=== PATIENT | male | born 1995 ===

== ENCOUNTER 2016-08-12 12:10 | Emergency (ER) | payer MEDICAID ==
[2016-08-12 12:16] VITALS: BP 129/69; PULSE 75; RESP 18; TEMP 98.3; O2SAT 97
--- NOTE | 2016-08-12 12:38 | ED PDOC ---
Upper Extremity Pain/Injury Time Seen by Provider: 08/12/16 12:25 Chief Complaint (Nursing): Upper Extremity Problem/Injury Chief Complaint (Provider): left wrist pain History Per: Patient History/Exam Limitations: no limitations Onset/Duration Of Symptoms: Days (x 2) Current Symptoms Are (Timing): Still Present Additional Complaint(s): Chidi Smith is a 21 year old male, with a previous medical history of cardia arrhythmia, who presents to the ED with complaints of left wrist pain after he injured himself playing basketball 2 day prior. Patient reports he was dribbling the ball and accidentally hyper extended his wrist in the process. Patient reports pain during movement of the wrist but denies taking any medication for pain. PMD: none provided Past Medical History Reviewed: Historical Data, Nursing Documentation, Vital Signs Vital Signs: Last Vital Signs Temp 98.3 F 08/12/16 12:15 Pulse 75 08/12/16 12:15 Resp 18 08/12/16 12:15 BP 129/69 08/12/16 12:15 Pulse Ox 97 08/12/16 12:15 - Medical History PMH: Comment Only: Cardia Arrhythmia (ventral septal defect) - Surgical History Other surgeries: cardiac surgery - Family History Family History: States: Unknown Family Hx - Immunization History Hx Tetanus Toxoid Vaccination: No Hx Influenza Vaccination: No Hx Pneumococcal Vaccination: No - Home Medications Home Medications: Ambulatory Orders Medication Instructions Recorded Ibuprofen [Motrin] 600 mg PO Q8 PRN #12 tab 08/12/16 - Allergies Allergies/Adverse Reactions: Allergies Allergy/AdvReac Type Severity Reaction Status Date / Time No Known Allergies Allergy Verified 01/24/15 20:08 Review of Systems ROS Statement: Except As Marked, All Systems Reviewed And Found Negative Musculoskeletal: Positive for: Hand Pain (left wrist ) Physical Exam - Reviewed Nursing Documentation Reviewed: Yes Vital Signs Reviewed: Yes - Physical Exam Appears: Positive for: Well, Non-toxic, No Acute Distress Pulses-Radial (L): 2+ Extremity: Positive for: Normal ROM, Capillary Refill (< 2 seconds ), Other ( old scar on extensir surface of left wrist. no snuff box tenderness ). Negative for: Tenderness (no bony tenderness noted. patient reports pain to the volar aspect with movement.), Deformity, Swelling Neurologic/Psych: Positive for: Alert, Oriented - ECG O2 Sat by Pulse Oximetry: 97 (RA) Pulse Ox Interpretation: Normal - Progress ED Course And Treament: Xry of wrist: no acte fx Placed in volar splint Medical Decision Making Medical Decision Making: Initial Impression: left wrist pain Initial Plan: * x-ray left wrist * reevaluation Patient is refusing anything for pain in the ED at this time. Scribe Attestation: Documented by Hanane Drummond, acting as a scribe for Libertad Bella PA-C. Provider Scribe Attestation: All medical record entries made by the Scribe were at my direction and personally dictated by me. I have reviewed the chart and agree that the record accurately reflects my personal performance of the history, physical exam, medical decision making, and the department course for this patient. I have also personally directed, reviewed, and agree with the discharge instructions and disposition. Disposition - Clinical Impression Clinical Impression: Wrist sprain - Patient ED Disposition Is Patient to be Admitted: No - Disposition Referrals: [facility] [Outside] Disposition: Routine/Home Disposition Time: 13:09 Condition: FAIR Prescriptions: Ibuprofen [Motrin] 600 mg PO Q8 PRN #12 tab PRN Reason: Pain, Moderate (4-7) Instructions: Wrist Sprain (ED) Forms: [facility] ED School/Work Excuse
--- NOTE | 2016-08-12 13:18 | RAD ---
PROCEDURE: Left Wrist Radiographs. HISTORY: wrist injury COMPARISON: None. FINDINGS: BONES: Normal. No fracture. JOINTS: Normal. No dislocation. Negative ulnar variance SOFT TISSUES: Normal. OTHER FINDINGS: No radiopaque foreign bodies IMPRESSION: No evidence of acute displaced fracture nor dislocation
== END 2016-08-12 13:47 | disposition home or self-care (01) ==
LOC: H.ER 12:10
DX: S63.502A Unspecified sprain of left wrist, initial encounter (principal); X50.9XXA Other and unspecified overexertion or strenuous movements or postures, initial encounter; Y92.310 Basketball court as the place of occurrence of the external cause

== ENCOUNTER 2016-08-20 15:37 | Emergency (ER) | payer MEDICAID ==
[2016-08-20 15:57] VITALS: BP 126/66; PULSE 82; RESP 22; TEMP 98.1; O2SAT 98
[2016-08-20] MEDS ORDERED: Sodium Chloride 0.9% 1,000 ML IV STA (16:30)
--- NOTE | 2016-08-20 16:48 | ED PDOC ---
HPI: General Adult Time Seen by Provider: 08/20/16 16:14 Chief Complaint (Nursing): Abdominal Pain Chief Complaint (Provider): abdominal pain History Per: Patient History/Exam Limitations: no limitations Additional Complaint(s): 21yo male comes to the ED complaining of mid abdominal pain radiating to the chest for 2 days associated with several episodes of vomit. No diarrhea, fever or shortness of breath. 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 He has not followed up in >2 years. Is not taking any current mediations. Never had this pain before. Denies syncope, dizziness, bloody stools. 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 - Family History Family History: States: Unknown Family Hx - Living Arrangements Living Arrangements: With Family - Social History Current smoker - smoking cessation education provided: No Alcohol: Social (infrequent) - Immunization History Hx Tetanus Toxoid Vaccination: No Hx Influenza Vaccination: No Hx Pneumococcal Vaccination: No - Home Medications Home Medications: Ambulatory Orders Medication Instructions Recorded Ibuprofen [Motrin] 600 mg PO Q8 PRN #12 tab 08/12/16 Dicyclomine [Dicyclomine HCl] 10 mg PO TID PRN #12 08/20/16 - Allergies Allergies/Adverse Reactions: Allergies Allergy/AdvReac Type Severity Reaction Status Date / Time No Known Allergies Allergy Verified 01/24/15 20:08 Review of Systems ROS Statement: Except As Marked, All Systems Reviewed And Found Negative Cardiovascular: Positive for: Chest Pain Gastrointestinal: Positive for: Abdominal Pain. Negative for: Other (bloody stools) Neurological: Negative for: Dizziness Physical Exam - Reviewed Nursing Documentation Reviewed: Yes Vital Signs Reviewed: Yes - Physical Exam Appears: Positive for: Well, Non-toxic, No Acute Distress Head Exam: Positive for: ATRAUMATIC, NORMAL INSPECTION, NORMOCEPHALIC Skin: Positive for: Warm, Dry Eye Exam: Positive for: EOMI, PERRL Cardiovascular/Chest: Positive for: Regular Rate, Rhythm. Negative for: Murmur Respiratory: Positive for: Normal Breath Sounds. Negative for: Rales, Rhonchi, Wheezing Gastrointestinal/Abdominal: Positive for: Soft, Tenderness (mild periumbilical and mid abdominal tenderness). Negative for: Guarding, Rebound Extremity: Positive for: Normal ROM - Laboratory Results Result Diagrams: 08/20/16 16:30 08/20/16 16:30 - ECG O2 Sat by Pulse Oximetry: 98 (RA) Pulse Ox Interpretation: Normal Medical Decision Making Medical Decision Makin workup for undifferentiated abdominal pain and chest pain. Bloodwork, EKG, CT chest/abd/pel w/ contrast, Pepcid, zofran, IV fluids ordered. workup unremarkable incld blood and CT imaging of chest/abd/pelvis. DC home with followup PMD. No signs acute surgical, infections, cardiac or neurologic emergency at this time to indicate hospital admission or further emergent testing. Disposition - Clinical Impression Clinical Impression: Abdominal pain - Patient ED Disposition Is Patient to be Admitted: No Counseled Patient/Family Regarding: Studies Performed, Diagnosis, Need For Followup - Disposition Referrals: Boby XIONG,MD [facility] [Medical Doctor] - Disposition: Routine/Home Disposition Time: 20:30 Condition: STABLE Additional Instructions: See GI doctor for further testing and treatment. Use medications as directed only. Avoid alcohol. Prescriptions: Dicyclomine [Dicyclomine HCl] 10 mg PO TID PRN #12 PRN Reason: Gi Distress Instructions: Acute Abdominal Pain (ED) Forms: [facility] ED School/Work Excuse Additional Comments - Additional Comments Additional Comments: Scribe Attestation: Documented by Junaid Montaño acting as a scribe for Gino Adames DO. Provider Scribe Attestation: All medical record entries made by the Scribe were at my direction and personally dictated by me. I have reviewed the chart and agree that the record accurately reflects my personal performance of the history, physical exam, medical decision making, and the department course for this patient. I have also personally directed, reviewed, and agree with the discharge instructions and disposition.
[2016-08-20 17:06] LABS: BASO % 0.4 % (0.0-2.0); EOS # 0.2 K/uL (0.0-0.7); EOS % 2.9 % (0.0-4.0); HEMATOCRIT 45.9 % (35.0-51.0); LYMPH # 2.3 K/uL (1.0-4.3); LYMPH % 32.9 % (20.0-40.0); MEAN CELL VOLUME 87.3 fl (80.0-94.0); MEAN CORPUSCULAR HEMOGLOBIN 29.3 pg (27.0-31.0); MEAN CORPUSCULAR HGB CONC 33.6 g/dL (33.0-37.0); MONO # 0.6 K/uL (0.0-0.8); MONO % 8.4 % (0.0-10.0); NEUT # 3.8 K/uL (1.8-7.0); NEUT % 55.4 % (50.0-75.0); NRBC % 0.1 % (0.0-0.0); RED CELL DISTRIBUTION WIDTH 13.5 % (11.5-14.5); WHITE BLOOD COUNT 6.9 K/uL (4.8-10.8)
[2016-08-20 17:28] LABS: ALB/GLOB RATIO 1.6 (1.0-2.1); ALKALINE PHOSPHATASE 82 U/L (38-126); ALT/SGPT 30 U/L (21-72); AST/SGOT 26 U/L (17-59); BILIRUBIN,TOTAL 0.8 mg/dl (0.2-1.3); BLOOD UREA NITROGEN 10 mg/dl (9-20); CALCIUM 9.7 mg/dL (8.4-10.2); CARBON DIOXIDE 27 mmol/L (22-30); CHLORIDE 103 mmol/L (98-107); GFR AFRICAN-AMERICAN > 60; GLUCOSE,RANDOM 100 mg/dL (75-110); LIPASE 70 U/L (23-300); POTASSIUM 4.1 MMOL/L (3.6-5.0); SODIUM 143 mmol/l (132-148); TOTAL PROTEIN 7.5 G/DL (6.3-8.2)
[2016-08-20] MEDS ORDERED: Iohexol 300 100 ML IJ ONE (19:35)
[2016-08-20] MEDS ORDERED: Sodium Chloride 0.9% 50 ML IV ONE (19:36)
[2016-08-20 19:57] LABS: RBC URINE 2 /hpf (0-3); URINE BILIRUBIN NEGATIVE (NEGATIVE); URINE BLOOD NEGATIVE (NEGATIVE); URINE COLOR STRAW (YELLOW); URINE GLUCOSE (UA) NEG (Normal); URINE KETONE NEGATIVE (NEGATIVE); URINE LEUKOCYTE ESTERASE NEG Leu/uL (Negative); URINE PROTEIN NEGATIVE (NEGATIVE); URINE UROBILINOGEN 0.2-1.0 mg/dL (0.2-1.0); WBC URINE 1 /hpf (0-5)
--- NOTE | 2016-08-21 10:53 | CT ---
PROCEDURE: CT Chest, Abdomen and Pelvis with intravenous contrast HISTORY: abd and chest pain hx ?congenital heart defect COMPARISON: None. TECHNIQUE: IV dose administered: 100 cc Omnipaque Radiation dose: Total exam DLP = 575 mGy-cm. This CT exam was performed using one or more of the following dose reduction techniques: Automated exposure control, adjustment of the mA and/or kV according to patient size, and/or use of iterative reconstruction technique. FINDINGS: CT CHEST WITH CONTRAST: LUNGS: Clear. No nodule, mass or consolidation. MEDIASTINUM: Unremarkable. Normal caliber aorta and pulmonary arterial trunk. No aortic dissection. Normal size heart. LYMPH NODES: Unremarkable. PLEURA: Unremarkable. No pneumothorax. No pleural fluid. BONES: Unremarkable. OTHER FINDINGS: None. CT ABDOMEN AND PELVIS: LIVER: Unremarkable. No gross lesion or ductal dilatation. GALLBLADDER AND BILE DUCTS: Unremarkable. PANCREAS: Unremarkable. No gross lesion or ductal dilatation. SPLEEN: Unremarkable. ADRENALS: Unremarkable. No mass. KIDNEYS AND URETERS: Unremarkable. No hydronephrosis. No solid mass. VASCULATURE: Unremarkable. No aortic aneurysm. BOWEL: Unremarkable. No obstruction. No gross mural thickening. APPENDIX: Normal appendix. PERITONEUM: Unremarkable. No free fluid. No free air. LYMPH NODES: Unremarkable. No enlarged lymph nodes. BLADDER: Unremarkable. REPRODUCTIVE: Unremarkable. BONES: No acute fracture. OTHER FINDINGS: None. IMPRESSION:
--- NOTE | 2016-08-22 18:57 | CARD ---
APPROVED REPORT EKG Measurement Heart [id number] <Conclusion> Normal sinus rhythm Rightward axis Borderline ECG
== END 2016-08-20 21:06 | disposition home or self-care (01) ==
LOC: H.ER 15:37
DX: R10.9 Unspecified abdominal pain (principal)

== ENCOUNTER 2016-09-26 21:30 | Emergency (ER) | payer MEDICAID ==
[2016-09-26 21:42] VITALS: BP 119/73; PULSE 71; RESP 16; TEMP 98.4; O2SAT 99
--- NOTE | 2016-09-26 23:33 | ED PDOC ---
Lower Extremity Pain/Injury Time Seen by Provider: 09/26/16 21:37 Chief Complaint (Nursing): Lower Extremity Problem/Injury Chief Complaint (Provider): Left knee and ankle pain s/p fall 10 hours ROVING OR [employer] History Per: Patient Past Medical History Reviewed: Historical Data, Nursing Documentation, Vital Signs Vital Signs: Last Vital Signs Temp 98.4 F 09/26/16 21:38 Pulse 71 09/26/16 21:38 Resp 16 09/26/16 21:38 BP 119/73 09/26/16 21:38 Pulse Ox 99 09/26/16 21:38 - Medical History PMH: No Chronic Diseases Denies: Chronic Kidney Disease Comment Only: Cardia Arrhythmia (ventral septal defect) - Surgical History Surgical History: No Surg Hx - Family History Family History: States: Unknown Family Hx - Living Arrangements Living Arrangements: With Family - Social History Current smoker - smoking cessation education provided: No - Immunization History Hx Tetanus Toxoid Vaccination: No Hx Influenza Vaccination: No Hx Pneumococcal Vaccination: No - Home Medications Home Medications: Ambulatory Orders Medication Instructions Recorded Ibuprofen [Motrin] 600 mg PO Q8 PRN #12 tab 08/12/16 Dicyclomine [Dicyclomine HCl] 10 mg PO TID PRN #12 08/20/16 - Allergies Allergies/Adverse Reactions: Allergies Allergy/AdvReac Type Severity Reaction Status Date / Time No Known Allergies Allergy Verified 01/24/15 20:08 Review of Systems ROS Statement: Except As Marked, All Systems Reviewed And Found Negative Musculoskeletal: Positive for: Leg Pain Skin: Positive for: Bruising Physical Exam - Reviewed Nursing Documentation Reviewed: Yes Vital Signs Reviewed: Yes - Physical Exam Appears: Positive for: Well, Non-toxic, No Acute Distress Head Exam: Positive for: ATRAUMATIC, NORMAL INSPECTION, NORMOCEPHALIC Skin: Positive for: Normal Color, Warm, DRY Eye Exam: Positive for: Normal appearance ENT: Positive for: Normal ENT Inspection Neck: Positive for: Normal, Painless ROM Respiratory: Negative for: Decreased Breath Sounds, Accessory Muscle Use, Respiratory Distress Pulses-Dorsalis Pedis (L): 2+ Pulses-Dorsalis Pedis (R): 2+ Pulses-Post. Tibialis (L): 2+ Pulses-Post. Tibialis (R): 2+ Back: Positive for: Normal Inspection Extremity: Positive for: Other (Decreased ROM in ankle ). Negative for: Normal ROM (Decreased ROM in right knee (flexion)), Deformity, Swelling Neurologic/Psych: Positive for: Alert, Oriented - ECG O2 Sat by Pulse Oximetry: 99 Pulse Ox Interpretation: Normal Medical Decision Making Medical Decision Making: (+) lesion on the tibia No acute fracture or dislocation. Disposition - Clinical Impression Clinical Impression: Ankle pain, Knee pain - Patient ED Disposition Is Patient to be Admitted: No Counseled Patient/Family Regarding: Diagnosis, Need For Followup, Rx Given - Disposition Referrals: Abdirahman Weldon III, MD [Staff Provider] - Disposition: Routine/Home Disposition Time: 23:33 Condition: GOOD Additional Instructions: Please follow-up with orthopedic for abnormality of tibia. Instructions: Arthralgia (ED)
--- NOTE | 2016-09-27 07:39 | RAD ---
HISTORY: pain s/p fall COMPARISON: No prior FINDINGS: BONES: Normal. No fracture. 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 Recommend follow-up. JOINTS: Normal. No osteoarthritis. SOFT TISSUE: Normal. OTHER FINDINGS: None . 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 Recommend follow-up.
--- NOTE | 2016-09-27 07:50 | RAD ---
HISTORY: knee injury COMPARISON: No prior FINDINGS: BONES: Normal. No fracture. JOINTS: Normal. No osteoarthritis. SOFT TISSUE: Normal. OTHER FINDINGS: None . IMPRESSION: Normal Bone Xray.
== END 2016-09-26 23:59 | disposition home or self-care (01) ==
LOC: H.ER 21:30
DX: M25.562 Pain in left knee (principal); M25.572 Pain in left ankle and joints of left foot; W19.XXXA Unspecified fall, initial encounter; Y92.89 Other specified places as the place of occurrence of the external cause

== ENCOUNTER 2016-10-08 10:23 | Emergency (ER) | payer MEDICAID ==
[2016-10-08 10:37] VITALS: TEMP 96; O2SAT 98
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
[2016-10-08 13:12] VITALS: BP 116/74; PULSE 85; RESP 18
--- NOTE | 2016-10-08 13:59 | RAD ---
PROCEDURE: Left Hip X-ray Radiographs. HISTORY: pain s/p fall COMPARISON: None. FINDINGS: BONES: Normal. No fracture. JOINTS: Normal. SOFT TISSUES: Normal. OTHER FINDINGS: None. IMPRESSION: Normal left hip radiographs.
== END 2016-10-08 13:12 | disposition home or self-care (01) ==
LOC: H.ER 10:23
DX: S70.02XA Contusion of left hip, initial encounter (principal); M54.9 Dorsalgia, unspecified; Y93.55 Activity, bike riding; Y92.410 Unspecified street and highway as the place of occurrence of the external cause